=== PATIENT | male | born 1940 | race Caucasian/White ===

== ENCOUNTER 2017-03-28 12:50 | Outpatient (RCR) | payer MEDICARE, BC ==
[~2017-03-28 12:50] MED LIST: ASPI81TA85 PO; DIOV80TA3 PO; GABA-283 PO; LEVO25TA5 PO; LIPI10TA PO; PRAM0.252 PO; TRIC145T PO; TYLE325T5 PO; ULTR37.52 PO
== END 2017-03-30 ==
LOC: M CR 12:50
PROVIDERS: ATTEND Internal Medicine Cardiovascular Disease
DX: Z51.89 Encounter for other specified aftercare (principal); I25.10 Atherosclerotic heart disease of native coronary artery without angina pectoris

== ENCOUNTER 2017-04-14 08:57 | Outpatient (RCR) | payer MEDICARE, BC | END 2017-04-30 | LOC: M CR 08:57 | PROVIDERS: ATTEND Internal Medicine Cardiovascular Disease | DX: Z51.89 Encounter for other specified aftercare (principal); I25.10 Atherosclerotic heart disease of native coronary artery without angina pectoris ==

== ENCOUNTER 2017-04-18 14:27 | Emergency (ER) | payer MEDICARE, BC ==
[~2017-04-18] VITALS: Ht 177.8 cm; Wt 88.0 kg
--- NOTE | 2017-04-18 15:56 | REP ---
Clinical: Dizziness. Comparison: None. Findings: Age-related atrophy and microvascular ischemic changes are appreciated. The ventricles and sulci are symmetric. Tejeda-white differentiation is maintained. There is no evidence for acute intracranial hemorrhage, mass/mass effect, pathology or infarction. No extra-axial fluid collection. Calvarium is intact. Paranasal sinuses and mastoid air cells are clear. Impression: Age related atrophy and microvascular ischemic changes. No acute intracranial hemorrhage, infarction, or mass/mass effect. Signed by Willem Carranza MD 04/18/2017 03:48 P
--- NOTE | 2017-04-18 16:07 | REP ---
Clinical: Chest pain. Comparison: None. Findings: Evidence of prior sternotomy, CABG, and pacemaker placement. No evidence for cardiomegaly. Chronic-appearing bibasilar changes are suggested although mild superimposed acute atelectasis cannot be excluded. No effusion. No pneumothorax. Skeletal structures demonstrate age-related changes. Impression: No prior exams for comparison. Chronic-appearing changes suggested and mild superimposed basilar atelectasis cannot be excluded. Signed by Willem Carranza MD 04/18/2017 03:58 P
[2017-04-18 16:24] LABS: BASO % 0.4 % (0.0-1.0); EOS # 0.2 K/mm3 (0.0-0.50); EOS % 2.6 % (0.0-3.0); LARGE UNSTAINED CELL # 0.2 K/mm3 (0.0-0.4); LARGE UNSTAINED CELL % 2.2 % (0.0-4.0); LYMPH % 25.1 % (24.0-44.0); MEAN CORPUSCULAR HEMOGLOBIN 32.5 pg (27.0-33.0); MEAN CORPUSCULAR VOLUME 98.4 fl (80.0-96.0); MONO # 0.7 K/mm3 (0.0-0.8); MONO % 9.4 % (0.0-5.0); NEUTROPHILS # 4.4 K/mm3 (1.8-7.7); NEUTROPHILS % 60.3 % (36.0-66.0); PLATELET COUNT, AUTOMATED 163 k/mm3 (150-450); RED CELL DISTRIBUTION WIDTH 13.4 % (11.5-14.5); WHITE BLOOD COUNT 7.3 K/mm3 (4.0-10.0)
[2017-04-18 16:46] LABS: ALBUMIN 3.7 GM/DL (3.2-5.2); ALBUMIN/GLOBULIN RATIO 1.06 (1.00-1.93); ALKALINE PHOSPHATASE 82 U/L (45-117); ALT/SGPT 23 U/L (12-78); ANION GAP 9 MEQ/L (8-16); AST/SGOT 18 U/L (15-37); BILIRUBIN,DIRECT 0.1 MG/DL (0.0-0.2); BILIRUBIN,TOTAL 0.5 MG/DL (0.2-1.0); BLOOD UREA NITROGEN 53 MG/DL (7-18); CALCIUM LEVEL 8.7 MG/DL (8.8-10.2); CARBON DIOXIDE LEVEL 22 MEQ/L (21-32); CHLORIDE LEVEL 107 MEQ/L (98-107); CREATININE FOR GFR 1.83 MG/DL (0.70-1.30); FREE T4 1.38 NG/DL (0.76-1.46); GLOMERULAR FILTRATION RATE 38.6 (>42); GLUCOSE, FASTING 78 MG/DL (83-110); POTASSIUM SERUM 4.6 MEQ/L (3.5-5.1); SODIUM LEVEL 138 MEQ/L (136-145); TOTAL PROTEIN 7.2 GM/DL (6.4-8.2)
[2017-04-18 17:44] VITALS: BP 115/63
--- NOTE | 2017-04-18 19:29 | ECGEPIP ---
Stationary ECG Study [facility] [place] - ED Test Date: 2017-04-18 Pat Name: CHASE STEINER Department: Room: - Gender: M [employer]: JMary : 1940 Requested By: Bishop Stewart Order Number: [id number] Reading MD: Amando Marquez Measurements Intervals Rogers Rate: 61 P: 125 TX: 194 QRS: 41 QRSD: 101 T: 28 QT: 405 QTc: 408 Interpretive Statements ELECTRONIC ATRIAL PACEMAKER ABNORMAL RHYTHM ECG Electronically Signed On 04-18-2017 19:29:21 EDT by Amando Marquez
== END 2017-04-18 17:52 | disposition home or self-care (01) ==
LOC: M ED 17:25
DX: S09.90XA Unspecified injury of head, initial encounter (principal); W01.0XXA Fall on same level from slipping, tripping and stumbling without subsequent striking against object, initial encounter; Y92.89 Other specified places as the place of occurrence of the external cause; Y93.01 Activity, walking, marching and hiking; Y99.9 Unspecified external cause status; R42 Dizziness and giddiness; I25.2 Old myocardial infarction; I10 Essential (primary) hypertension; E78.00 Pure hypercholesterolemia, unspecified; G47.30 Sleep apnea, unspecified; F32.9 Major depressive disorder, single episode, unspecified; F17.200 Nicotine dependence, unspecified, uncomplicated; K51.90 Ulcerative colitis, unspecified, without complications; Z79.82 Long term (current) use of aspirin; Z79.899 Other long term (current) drug therapy

== ENCOUNTER → 2017-05-30 | Outpatient (RCR) | payer MEDICARE, BC ==
[~2017-05-30] MED LIST changes: -TRIC145T PO; +TRIC145T22 PO; -ULTR37.52 PO; +ULTR37.54 PO
== END ==
LOC: M CR 05-01 08:53
PROVIDERS: ATTEND Internal Medicine Cardiovascular Disease
DX: Z51.89 Encounter for other specified aftercare (principal); I25.10 Atherosclerotic heart disease of native coronary artery without angina pectoris

== ENCOUNTER 2017-06-13 10:10 | Outpatient (RCR) | payer MEDICARE, BC | END 2017-06-30 | LOC: M CR 10:10 | PROVIDERS: ATTEND Internal Medicine Cardiovascular Disease | DX: Z51.89 Encounter for other specified aftercare (principal); I25.10 Atherosclerotic heart disease of native coronary artery without angina pectoris ==

== ENCOUNTER → 2018-03-25 | Outpatient (CLI) | payer MEDICARE, BC ==
[2018-03-25 13:28] LABS: BASO % 0.3 % (0.0-1.0); EOS % 0.7 % (0.0-3.0); HEMATOCRIT 38.8 % (42.0-52.0); LYMPH # 1.9 10^3/uL (1.5-4.5); LYMPH % 32.7 % (24.0-44.0); MEAN CORPUSCULAR HEMOGLOBIN 33.9 pg (27.0-33.0); MEAN CORPUSCULAR HGB CONC 33.5 g/dl (32.0-36.5); MONO # 0.8 10^3/uL (0.0-0.8); MONO % 13.3 % (0.0-5.0); PLATELET COUNT, AUTOMATED 174 10^3/uL (150-450); RED BLOOD COUNT 3.84 10^6/uL (4.30-6.10); RED CELL DISTRIBUTION WIDTH 13.6 % (11.5-14.5); WHITE BLOOD COUNT 5.8 10^3/uL (4.0-10.0)
[2018-03-25 14:09] LABS: ALBUMIN 3.2 GM/DL (3.2-5.2); ALBUMIN/GLOBULIN RATIO 0.91 (1.00-1.93); ALKALINE PHOSPHATASE 70 U/L (45-117); ALT/SGPT 42 U/L (12-78); AST/SGOT 25 U/L (7-37); BILIRUBIN,DIRECT 0.1 MG/DL (0.0-0.2); BILIRUBIN,TOTAL 0.5 MG/DL (0.2-1.0); FERRITIN 130 NG/ML (26-388); IRON (FE) 99 UG/DL (65-175); PERCENT SATURATION 39.6 % (19.7-50.0); TOTAL IRON BINDING CAPACITY 250 UG/DL (250-450); TOTAL PROTEIN 6.7 GM/DL (6.4-8.2)
== END ==
LOC: M LAB 12:23
DX: R19.7 Diarrhea, unspecified (principal)
CPT/HCPCS: 83550

== ENCOUNTER → 2018-03-26 | Outpatient (REF) | payer MEDICARE, BC | LOC: M LAB REF 11:11 | DX: R19.7 Diarrhea, unspecified (principal) | CPT/HCPCS: 87177 ==

== ENCOUNTER → 2018-03-31 | Outpatient (REF) | payer MEDICARE, BC ==
[2018-03-31 10:27] LABS: CREATININE FOR GFR 1.71 MG/DL (0.70-1.30); GLOMERULAR FILTRATION RATE 41.6 (>42)
[2018-03-31 10:27] LABS: BLOOD UREA NITROGEN 33 MG/DL (7-18)
[2018-03-31 10:38] LABS: FOLATE > 24.0 NG/ML; VITAMIN B12 LEVEL 647 PG/ML
[2018-03-31 10:53] LABS: ESTIMATED AVERAGE GLUCOSE 131 MG/DL (60-110); HEMOGLOBIN A1c 6.2 %
[2018-04-03 14:13] LABS: CERULOPLASMIN 35.8 mg/dL (16.0-31.0); COPPER PLASMA 149 ug/dL (72-166); VITAMIN B1 LEVEL WHOLE BLOOD 228.4 nmol/L (66.5-200.0); VITAMIN B6,PYRIDOXAL PHOSPHATE 23.6 ug/L (5.3-46.7); VITAMIN E(GAMMA TOCOPHEROL) 1.1 mg/L (0.5-4.9)
== END ==
LOC: M LAB REF 09:12
DX: G62.9 Polyneuropathy, unspecified (principal); E11.9 Type 2 diabetes mellitus without complications; E53.8 Deficiency of other specified B group vitamins; T56.4X2S Toxic effect of copper and its compounds, intentional self-harm, sequela
CPT/HCPCS: 82525

== ENCOUNTER 2018-04-01 09:25 | Emergency (ER) | payer MEDICARE, BC ==
[2018-04-01] MEDS: NS 1,000 ML IV (10:35)
[2018-04-01 10:50] LABS: BASO % 0.5 % (0.0-1.0); EOS # 0.1 10^3/uL (0.0-0.50); EOS % 0.8 % (0.0-3.0); HEMATOCRIT 38.7 % (42.0-52.0); HEMOGLOBIN 12.6 g/dl (13.5-17.5); IMMATURE GRANULOCYTE % 0.6 % (0-3.0); LYMPH # 1.6 10^3/uL (1.5-4.5); MEAN CORPUSCULAR HEMOGLOBIN 33.5 pg (27.0-33.0); MEAN CORPUSCULAR HGB CONC 32.6 g/dl (32.0-36.5); MEAN CORPUSCULAR VOLUME 102.9 fl (80.0-96.0); MONO # 0.7 10^3/uL (0.0-0.8); MONO % 11.1 % (0.0-5.0); PLATELET COUNT, AUTOMATED 222 10^3/uL (150-450); RED BLOOD COUNT 3.76 10^6/uL (4.30-6.10); RED CELL DISTRIBUTION WIDTH 14.1 % (11.5-14.5); WHITE BLOOD COUNT 6.5 10^3/uL (4.0-10.0)
[2018-04-01 10:53] LABS: AMORPHOUS SEDIMENT RFX SMALL (NEGATIVE); KETONE, URINE AUTO RFX NEGATIVE (NEGATIVE); LEUKOCYTE ESTERASE UR AUTO RFX NEGATIVE (NEGATIVE); MUCUS, URINE RFX SMALL (NEGATIVE); NITRITE, URINE AUTO RFX NEGATIVE (NEGATIVE); RBC, URINE AUTO RFX 15 /HPF (0-3); SPECIFIC GRAVITY UR AUTO RFX 1.028 (1.002-1.035); SQUAM EPITHELIAL CELL UR AURFX 1 /HPF (0-6); WBC, URINE AUTO RFX 7 /HPF (0-3)
[2018-04-01 11:17] LABS: ALBUMIN 3.4 GM/DL (3.2-5.2); ALBUMIN/GLOBULIN RATIO 0.81 (1.00-1.93); ALKALINE PHOSPHATASE 79 U/L (45-117); ALT/SGPT 51 U/L (12-78); ANION GAP 7 MEQ/L (8-16); AST/SGOT 30 U/L (7-37); BILIRUBIN,DIRECT < 0.1 MG/DL (0.0-0.2); BILIRUBIN,TOTAL 0.4 MG/DL (0.2-1.0); BLOOD UREA NITROGEN 33 MG/DL (7-18); CALCIUM LEVEL 9.4 MG/DL (8.8-10.2); CARBON DIOXIDE LEVEL 27 MEQ/L (21-32); CHLORIDE LEVEL 107 MEQ/L (98-107); CREATININE FOR GFR 1.61 MG/DL (0.70-1.30); GLOMERULAR FILTRATION RATE 44.6 (>42); GLUCOSE, FASTING 100 MG/DL (70-100); LIPASE 173 U/L (73-393); POTASSIUM SERUM 3.9 MEQ/L (3.5-5.1); SODIUM LEVEL 141 MEQ/L (136-145); TOTAL PROTEIN 7.6 GM/DL (6.4-8.2)
== END 2018-04-01 12:51 | disposition home or self-care (01) ==
LOC: M ED 09:25
DX: E86.0 Dehydration (principal); I10 Essential (primary) hypertension; I25.2 Old myocardial infarction; E78.5 Hyperlipidemia, unspecified; G47.33 Obstructive sleep apnea (adult) (pediatric); F33.9 Major depressive disorder, recurrent, unspecified; Z79.899 Other long term (current) drug therapy; Z95.0 Presence of cardiac pacemaker; Z98.890 Other specified postprocedural states; Z87.891 Personal history of nicotine dependence
CPT/HCPCS: 83690

== ENCOUNTER 2018-04-17 07:20 | Day surgery (SDC) | payer MEDICARE, BC ==
[2018-04-17] MEDS: NS 1,000 ML IV (07:30)
[2018-04-17] MEDS ORDERED: PROPOFOL 200 MG/20 ML VIAL As Ordered (08:25)
== END 2018-04-17 10:16 | disposition home or self-care (01) ==
LOC: M OPP 07:20
DX: R19.7 Diarrhea, unspecified (principal); K91.850 Pouchitis; K62.4 Stenosis of anus and rectum; K62.89 Other specified diseases of anus and rectum; K63.3 Ulcer of intestine; I48.91 Unspecified atrial fibrillation; I25.10 Atherosclerotic heart disease of native coronary artery without angina pectoris; I25.2 Old myocardial infarction; I12.9 Hypertensive chronic kidney disease with stage 1 through stage 4 chronic kidney disease, or unspecified chronic kidney disease; Z95.0 Presence of cardiac pacemaker; Z95.1 Presence of aortocoronary bypass graft; E03.9 Hypothyroidism, unspecified; K51.90 Ulcerative colitis, unspecified, without complications; K57.32 Diverticulitis of large intestine without perforation or abscess without bleeding; Z90.49 Acquired absence of other specified parts of digestive tract; Z87.19 Personal history of other diseases of the digestive system; R42 Dizziness and giddiness; R06.02 Shortness of breath; M19.90 Unspecified osteoarthritis, unspecified site; F32.9 Major depressive disorder, single episode, unspecified; G47.30 Sleep apnea, unspecified; R06.83 Snoring; N18.9 Chronic kidney disease, unspecified; Z87.891 Personal history of nicotine dependence; Z79.82 Long term (current) use of aspirin; Z79.899 Other long term (current) drug therapy
CPT/HCPCS: 45380

== ENCOUNTER → 2018-04-20 | Outpatient (REF) | payer MEDICARE, BC ==
[2018-04-20 17:33] LABS: CREATININE FOR GFR 1.75 MG/DL (0.70-1.30); GLOMERULAR FILTRATION RATE 40.5 (>42)
[2018-04-20 17:33] LABS: BLOOD UREA NITROGEN 22 MG/DL (7-18)
== END ==
LOC: M LABNEURO 12:48
DX: N18.9 Chronic kidney disease, unspecified (principal)
CPT/HCPCS: 82565

== ENCOUNTER → 2018-04-24 | Outpatient (CLI) | payer MEDICARE, BC | LOC: M RAD 16:57 | DX: R42 Dizziness and giddiness (principal); R55 Syncope and collapse; R47.81 Slurred speech | CPT/HCPCS: 93880 ==

== ENCOUNTER → 2019-05-20 | Outpatient (REF) | payer MEDICARE, BC ==
[~2019-05-20] MED LIST changes: +AMIO200T PO; +ASPI-255 PO; +FISH100049 PO; -GABA-283 PO; +GABA-845 PO; +IMOD2TAB16 PO; +LOMO2.5T PO; +METO25TA4 PO; -PRAM0.252 PO; +PRAM0.255 PO; +PRAV40TA2 PO
== END ==
LOC: M SFHCPLAZ 12:44
PROVIDERS: ATTEND Family Medicine
DX: G47.10 Hypersomnia, unspecified (principal); R53.82 Chronic fatigue, unspecified; Z53.8 Procedure and treatment not carried out for other reasons

== ENCOUNTER → 2020-04-11 | Outpatient (REF) | payer MEDICARE, BC ==
[2020-04-11 16:03] LABS: BASO % 0.6 % (0.0-1.0); EOS # 0.1 10^3/uL (0.0-0.5); EOS % 1.1 % (0.0-3.0); HEMATOCRIT 49.9 % (42.0-52.0); HEMOGLOBIN 16.3 g/dl (13.5-17.5); LYMPH # 1.5 10^3/uL (1.5-5.0); LYMPH % 21.3 % (24.0-44.0); MEAN CORPUSCULAR HEMOGLOBIN 33.2 pg (27.0-33.0); MEAN CORPUSCULAR HGB CONC 32.7 g/dl (32.0-36.5); MEAN CORPUSCULAR VOLUME 101.6 fl (80.0-96.0); MONO # 0.8 10^3/uL (0.0-0.8); MONO % 10.6 % (0.0-5.0); NEUTROPHILS # 4.7 10^3/uL (1.5-8.5); NEUTROPHILS % 66.1 % (36.0-66.0); PLATELET COUNT, AUTOMATED 200 10^3/uL (150-450); RED BLOOD COUNT 4.91 10^6/uL (4.30-6.10); WHITE BLOOD COUNT 7.1 10^3/uL (4.0-10.0)
[2020-04-11 16:21] LABS: ALBUMIN 3.6 GM/DL (3.2-5.2); ALT/SGPT 27 U/L (12-78); BILIRUBIN,TOTAL 0.5 MG/DL (0.2-1.0); BLOOD UREA NITROGEN 30 MG/DL (7-18); CALCIUM LEVEL 9.9 MG/DL (8.8-10.2); CARBON DIOXIDE LEVEL 26 MEQ/L (21-32); CHLORIDE LEVEL 108 MEQ/L (98-107); CHOLESTEROL LEVEL 227 MG/DL (<200); CHOLESTEROL RISK RATIO 7.566 (<5); CREATININE FOR GFR 1.42 MG/DL (0.70-1.30); FOLATE > 24.0 NG/ML; FREE T4 1.47 NG/DL (0.76-1.46); GLOMERULAR FILTRATION RATE 51.3 (>42); GLUCOSE, FASTING 95 MG/DL (70-100); HDL CHOLESTEROL 30 MG/DL (>40); LDL CHOLESTEROL 126 MG/DL (<100); NON-HDL-C 197 MG/DL; POTASSIUM SERUM 4.5 MEQ/L (3.5-5.1); SODIUM LEVEL 142 MEQ/L (136-145); THYROID STIMULATING HORMONE 0.419 uIU/ML (0.358-3.740); TOTAL PROTEIN 7.1 GM/DL (6.4-8.2); TRIGLYCERIDES LEVEL 353 MG/DL (<150); URIC ACID 7.4 MG/DL (3.5-7.2); VITAMIN B12 LEVEL 679 PG/ML
[2020-04-11 16:29] LABS: HEMOGLOBIN A1c 5.9 %
== END ==
LOC: M SFHCPLAZ 11:59
PROVIDERS: ATTEND Physician Assistant
DX: G62.9 Polyneuropathy, unspecified (principal); E03.9 Hypothyroidism, unspecified; I10 Essential (primary) hypertension; G47.33 Obstructive sleep apnea (adult) (pediatric); M1A.9XX0 Chronic gout, unspecified, without tophus (tophi); Z79.899 Other long term (current) drug therapy
CPT/HCPCS: 36415; 80053; 80061; 82607; 82746; 83036; 84439; 84443; 84550; 85025; G0463

== ENCOUNTER → 2020-06-23 | Outpatient (CLI) | payer MEDICARE, BC ==
[~2020-06-23] MED LIST changes: -AMIO200T PO; +AMIO200T3 PO; -ASPI81TA85 PO; +ASPI81TA86 PO
--- NOTE | 2020-08-14 07:10 | SLEEPCENT ---
DATE: 06/23/2020 ORDERED BY: TRINI Bansal Nocturnal polysomnography was performed for evaluation of sleep physiology in light of concern for the obstructive sleep apnea syndrome in this patient who had previously been diagnosed with this condition and has comorbidities of hypothyroidism, obesity, and hypertension, as well as coronary artery disease. Seven hours and 53 minutes of data were reviewed. There were 198.5 minutes of sleep identified. Sleep latency was prolonged at 160 minutes. REM latency was prolonged at 185 minutes. Sleep architecture showed poor progression with periods of wake and overall sleep efficiency was diminished at 42.9%. The electrocardiogram showed a sinus rhythm with an average heart rate of 62 beats per minute. The EEG showed reasonably normal waveforms for wake and sleep. There were only eight respiratory events identified of ten seconds in duration or greater for an apnea hypopnea index of 2.4. Significant snoring was, however, appreciated. Respiratory related arousals, when arousals from snoring were included, occurred 6.3 times per hour. There were no oxygen desaturations below 90%. Some limb activity was noted, but limb movement arousal index was only 4.2. IMPRESSIONS: Normal nocturnal polysomnography with snoring. [facility]
== END ==
LOC: M SLEEP 20:00
PROVIDERS: ATTEND Nurse Practitioner Family
DX: R06.83 Snoring (principal)

== ENCOUNTER → 2020-09-27 | Outpatient (REF) | payer MEDICARE, BC ==
[2020-09-27 14:25] LABS: BLOOD UREA NITROGEN 19 MG/DL (7-18); CREATININE FOR GFR 1.56 MG/DL (0.70-1.30); GLOMERULAR FILTRATION RATE 45.9 (>42); GLUCOSE, FASTING 98 MG/DL (70-100); SODIUM LEVEL 145 MEQ/L (136-145)
[2020-09-27 14:26] LABS: ALBUMIN 3.5 GM/DL (3.2-5.2); ALT/SGPT 20 U/L (12-78); BILIRUBIN,TOTAL 0.4 MG/DL (0.2-1.0); CALCIUM LEVEL 9.6 MG/DL (8.8-10.2); CARBON DIOXIDE LEVEL 27 MEQ/L (21-32); CHLORIDE LEVEL 112 MEQ/L (98-107); CHOLESTEROL LEVEL 162 MG/DL (<200); CHOLESTEROL RISK RATIO 4.153 (<5); HDL CHOLESTEROL 39 MG/DL (>40); LDL CHOLESTEROL 86 MG/DL (<100); NON-HDL-C 123 MG/DL; POTASSIUM SERUM 4.5 MEQ/L (3.5-5.1); THYROID STIMULATING HORMONE < 0.005 uIU/ML (0.358-3.740); TOTAL PROTEIN 6.9 GM/DL (6.4-8.2); TRIGLYCERIDES LEVEL 184 MG/DL (<150); URIC ACID 9.7 MG/DL (3.5-7.2)
== END ==
LOC: M SFHCPLAZ 11:02
PROVIDERS: ATTEND Physician Assistant
DX: E78.5 Hyperlipidemia, unspecified (principal); I10 Essential (primary) hypertension; E03.9 Hypothyroidism, unspecified; M1A.9XX0 Chronic gout, unspecified, without tophus (tophi)

== ENCOUNTER → 2020-10-20 | Outpatient (CLI) | payer MEDICARE, BC ==
[2020-10-20 16:15] LABS: ALBUMIN 3.4 GM/DL (3.2-5.2); BILIRUBIN,DIRECT 0.2 MG/DL (0.0-0.2); BILIRUBIN,TOTAL 0.5 MG/DL (0.2-1.0); FREE T4 1.46 NG/DL (0.76-1.46); THYROID STIMULATING HORMONE 0.012 uIU/ML (0.358-3.740); TOTAL PROTEIN 6.8 GM/DL (6.4-8.2)
== END ==
LOC: M PLALAB 13:28
PROVIDERS: ATTEND Internal Medicine Cardiovascular Disease
DX: E78.2 Mixed hyperlipidemia (principal); I25.10 Atherosclerotic heart disease of native coronary artery without angina pectoris

== ENCOUNTER → 2021-05-24 | Outpatient (REF) | payer MEDICARE, BC ==
[~2021-05-24] MED LIST changes: +GABA-283 PO; -GABA-845 PO
[2021-05-24 13:54] LABS: HEMATOCRIT 46.4 % (42.0-52.0); HEMOGLOBIN 15.4 g/dl (13.5-17.5); MEAN CORPUSCULAR HEMOGLOBIN 33.8 pg (27.0-33.0); MEAN CORPUSCULAR HGB CONC 33.2 g/dl (32.0-36.5); MEAN CORPUSCULAR VOLUME 101.8 fl (80.0-96.0); PLATELET COUNT, AUTOMATED 170 10^3/uL (150-450); RED BLOOD COUNT 4.56 10^6/uL (4.30-6.10); WHITE BLOOD COUNT 6.7 10^3/uL (4.0-10.0)
[2021-05-24 14:41] LABS: ALBUMIN 3.7 GM/DL (3.2-5.2); BILIRUBIN,TOTAL 0.4 MG/DL (0.2-1.0); CALCIUM LEVEL 9.5 MG/DL (8.8-10.2); CREATININE FOR GFR 1.39 MG/DL (0.70-1.30); FREE T4 0.95 NG/DL (0.76-1.46); GLOMERULAR FILTRATION RATE 52.5 (>42); POTASSIUM SERUM 4.5 MEQ/L (3.5-5.1); THYROID STIMULATING HORMONE 0.577 uIU/ML (0.358-3.740); TOTAL PROTEIN 7.1 GM/DL (6.4-8.2); URIC ACID 8.9 MG/DL (3.5-7.2)
[2021-05-25 17:07] LABS: FREE KAPPA LIGHT CHAINS SERUM 51.9 mg/L (3.3-19.4); FREE LAMBDA LIGHT CHAINS SERUM 33.2 mg/L (5.7-26.3); KAPPA/LAMBDA RATIO SERUM 1.56 (0.26-1.65)
== END ==
LOC: M SFHCPLAZ 11:26
PROVIDERS: ATTEND Physician Assistant
DX: M1A.9XX0 Chronic gout, unspecified, without tophus (tophi) (principal); I10 Essential (primary) hypertension; M54.5 Low back pain; E03.9 Hypothyroidism, unspecified
CPT/HCPCS: 36415; 80053; 83883; 84439; 84443; 84550; 85027; G0463

== ENCOUNTER 2022-04-17 16:30 | Observation (INO) | payer MEDICARE, BC ==
[~2022-04-17] VITALS: Ht 177.8 cm; Wt 79.5 kg
[~2022-04-17 16:30] MED LIST changes: -AMIO200T3 PO; +AMIO200T49 PO; +ULTR1TAB PO; -ULTR37.54 PO
[2022-04-17 18:17] LABS: BASO % 0.3 % (0.0-1.0); EOS # 0.2 10^3/uL (0.0-0.5); EOS % 3.4 % (0.0-3.0); HEMATOCRIT 47.3 % (42.0-52.0); HEMOGLOBIN 15.8 g/dl (13.5-17.5); LYMPH # 2.1 10^3/uL (1.5-5.0); LYMPH % 33.4 % (24.0-44.0); MEAN CORPUSCULAR HEMOGLOBIN 34.6 pg (27.0-33.0); MEAN CORPUSCULAR HGB CONC 33.4 g/dl (32.0-36.5); MEAN CORPUSCULAR VOLUME 103.7 fl (80.0-96.0); MONO # 0.8 10^3/uL (0.0-0.8); MONO % 13.2 % (2.0-8.0); NEUTROPHILS # 3.1 10^3/uL (1.5-8.5); NEUTROPHILS % 49.5 % (36.0-66.0); PLATELET COUNT, AUTOMATED 148 10^3/uL (150-450); RED BLOOD COUNT 4.56 10^6/uL (4.30-6.10); WHITE BLOOD COUNT 6.2 10^3/uL (4.0-10.0)
[2022-04-17 18:40] LABS: CK-MB VALUE MASS 1.2 NG/ML (<3.6); MB/CK RELATIVE INDEX 2.5 (< OR =4)
[2022-04-17 18:45] LABS: CALCIUM LEVEL 9.9 MG/DL (8.8-10.2); CREATININE FOR GFR 1.76 MG/DL (0.70-1.30); FREE T4 1.12 NG/DL (0.76-1.46); GLOMERULAR FILTRATION RATE 39.9 (>35); POTASSIUM SERUM 4.5 MEQ/L (3.5-5.1); THYROID STIMULATING HORMONE 0.402 uIU/ML (0.358-3.740)
[2022-04-17] MEDS ORDERED: NS 500 ML IV ONE (22:00)
[2022-04-17] MEDS: NS 1,000 ML IV SCH (22:00)
[2022-04-17] MEDS ORDERED: FISH1000 PO (22:55)
[2022-04-17] MEDS ORDERED: SYNT100T PO (22:55)
[2022-04-17] MEDS ORDERED: LOPE2TAB12 PO (22:55)
[2022-04-17] MEDS ORDERED: AMIO0.1T PO (22:55)
[2022-04-17] MEDS ORDERED: CHOL4PW PO (22:55)
[2022-04-17] MEDS ORDERED: GABA800T4 PO (22:55)
[2022-04-17] MEDS ORDERED: DULO-34 PO (22:56)
[2022-04-17] MEDS ORDERED: VITMTA PO (22:56)
[2022-04-17] MEDS ORDERED: MIRT-62 PO (22:56)
[2022-04-17] MEDS ORDERED: DICY1CAP8 PO (22:56)
[2022-04-17] MEDS ORDERED: HOME MED LIST COMPLETE! XX SCH (23:00)
[2022-04-18] MEDS: MIRTAZAPINE 15 MG TAB PO SCH ×2 (00:58→19:59)
[2022-04-18] MEDS: LEVOTHYROXINE 100MCG TABLET (0.1MG) PO SCH (05:59)
[2022-04-18] MEDS: HEPARIN SOD (PORCINE) 5000UNITS/ML 1ML VIAL/SYRINGE SQ SCH ×2 (06:00→18:27)
[2022-04-18 06:20] VITALS: BP 133/87
[2022-04-18] MEDS: AMIODARONE 100MG TABLET (PACERONE) PO SCH (09:26)
[2022-04-18] MEDS: MULTIVITAMINS/MINERALS THERAP 1 TAB PO SCH (09:26)
[2022-04-18] MEDS: DICYCLOMINE 10 MG CAP PO SCH ×3 (09:27→19:59)
[2022-04-18] MEDS: ASPIRIN ENTERIC 325 MG TAB PO SCH (09:27)
[2022-04-18] MEDS: METOPROLOL TART 25 MG TABLET PO SCH ×2 (09:27→19:59)
[2022-04-18] MEDS: GABAPENTIN 400MG CAP PO SCH ×2 (09:27→19:58)
[2022-04-18 10:17] LABS: BASO % 0.4 % (0.0-1.0); EOS # 0.2 10^3/uL (0.0-0.5); EOS % 3.9 % (0.0-3.0); HEMOGLOBIN 14.5 g/dl (13.5-17.5); LYMPH # 1.4 10^3/uL (1.5-5.0); LYMPH % 27.9 % (24.0-44.0); MONO # 0.3 10^3/uL (0.0-0.8); MONO % 5.9 % (2.0-8.0); NEUTROPHILS % 61.9 % (36.0-66.0); PLATELET COUNT, AUTOMATED 123 10^3/uL (150-450); RED BLOOD COUNT 4.27 10^6/uL (4.30-6.10); WHITE BLOOD COUNT 4.9 10^3/uL (4.0-10.0)
[2022-04-18] MEDS: CHOLESTYRAMINE 4 GM PWD PKT PO SCH ×2 (10:35→19:58)
[2022-04-18 10:42] LABS: CALCIUM LEVEL 9.3 MG/DL (8.8-10.2); CREATININE FOR GFR 1.58 MG/DL (0.70-1.30); GLOMERULAR FILTRATION RATE 45.1 (>35); MAGNESIUM LEVEL 1.8 MG/DL (1.8-2.4); POTASSIUM SERUM 3.9 MEQ/L (3.5-5.1)
[2022-04-18 11:00] VITALS: BP_SYST 113; BP_SYST 121; BP_SYST 122; BP_DIAS 73; BP_DIAS 76; BP_DIAS 88
[2022-04-18 16:00] VITALS: BP 127/54
[2022-04-18 16:40] LABS: ABG BASE EXCESS -4.4 (-2.0-2.0); ABG O2 SATURATION 95.7 % (95.0-99.0); ABG PARTIAL PRESSURE CO2 35.1 mmHg (35.0-45.0); ABG PARTIAL PRESSURE O2 79.7 mmHg (75.0-100.0); ABG STANDARD HCO3 20.8 MEQ/L (22.0-26.0); ABG TOTAL CO2 21.1 MEQ/L (23.0-31.0); ABG pH (ARTERIAL) 7.374 UNITS (7.350-7.450)
[2022-04-18 19:57] VITALS: BP 141/80
[2022-04-19] MEDS: NS 1,000 ML IV SCH (01:53)
[2022-04-19] MEDS: LEVOTHYROXINE 100MCG TABLET (0.1MG) PO SCH (05:35)
[2022-04-19] MEDS: HEPARIN SOD (PORCINE) 5000UNITS/ML 1ML VIAL/SYRINGE SQ SCH (05:36)
[2022-04-19 05:42] VITALS: BP 142/79
[2022-04-19 07:53] LABS: BASO % 0.4 % (0.0-1.0); EOS # 0.2 10^3/uL (0.0-0.5); EOS % 3.3 % (0.0-3.0); HEMATOCRIT 42.4 % (42.0-52.0); HEMOGLOBIN 13.9 g/dl (13.5-17.5); LYMPH # 1.5 10^3/uL (1.5-5.0); LYMPH % 33.8 % (24.0-44.0); MEAN CORPUSCULAR HEMOGLOBIN 33.7 pg (27.0-33.0); MEAN CORPUSCULAR HGB CONC 32.8 g/dl (32.0-36.5); MEAN CORPUSCULAR VOLUME 102.7 fl (80.0-96.0); MONO # 0.5 10^3/uL (0.0-0.8); MONO % 10.1 % (2.0-8.0); NEUTROPHILS # 2.4 10^3/uL (1.5-8.5); NEUTROPHILS % 52.2 % (36.0-66.0); PLATELET COUNT, AUTOMATED 105 10^3/uL (150-450); RED BLOOD COUNT 4.13 10^6/uL (4.30-6.10); WHITE BLOOD COUNT 4.6 10^3/uL (4.0-10.0)
[2022-04-19 08:24] LABS: CALCIUM LEVEL 9.2 MG/DL (8.8-10.2); CREATININE FOR GFR 1.32 MG/DL (0.70-1.30); GLOMERULAR FILTRATION RATE 55.6 (>35); MAGNESIUM LEVEL 1.8 MG/DL (1.8-2.4); POTASSIUM SERUM 4.1 MEQ/L (3.5-5.1)
[2022-04-19] MEDS: MULTIVITAMINS/MINERALS THERAP 1 TAB PO SCH (10:15)
[2022-04-19] MEDS: ASPIRIN ENTERIC 325 MG TAB PO SCH (10:15)
[2022-04-19] MEDS: AMIODARONE 100MG TABLET (PACERONE) PO SCH (10:15)
[2022-04-19] MEDS: DICYCLOMINE 10 MG CAP PO SCH ×2 (10:15→15:36)
[2022-04-19] MEDS: GABAPENTIN 400MG CAP PO SCH (10:15)
[2022-04-19 10:16] VITALS: BP 131/77
[2022-04-19] MEDS: METOPROLOL TART 25 MG TABLET PO SCH (10:16)
[2022-04-19] MEDS: CHOLESTYRAMINE 4 GM PWD PKT PO SCH (12:24)
[2022-04-19 14:00] VITALS: BP 128/82
[2022-04-19] MEDS ORDERED: ASPI-424 PO (15:04)
[2022-04-19] MEDS ORDERED: ELIQ5TAB PO (15:04)
[2022-04-19] MEDS ORDERED: APIXABAN 5 MG TAB (ELIQUIS) PO ONE (15:30)
[2022-04-20] MEDS ORDERED: ASPIRIN 81MG ENTERIC TABLET PO SCH (09:00)
== END 2022-04-19 16:04 | disposition home health service (06) ==
LOC: M ED 16:30 → M ED INP 20:35 → M MSPAV 23:45
PROVIDERS: ADMIT Internal Medicine; ATTEND Internal Medicine
DX: R29.6 Repeated falls (principal); E86.0 Dehydration; N17.9 Acute kidney failure, unspecified; K51.918 Ulcerative colitis, unspecified with other complication; K52.9 Noninfective gastroenteritis and colitis, unspecified; R09.02 Hypoxemia; I48.0 Paroxysmal atrial fibrillation; E03.9 Hypothyroidism, unspecified; F32.A Depression, unspecified; I25.10 Atherosclerotic heart disease of native coronary artery without angina pectoris; Z98.61 Coronary angioplasty status; Z95.0 Presence of cardiac pacemaker; R91.8 Other nonspecific abnormal finding of lung field; R79.1 Abnormal coagulation profile; N26.1 Atrophy of kidney (terminal); I51.89 Other ill-defined heart diseases; J30.2 Other seasonal allergic rhinitis; Z90.49 Acquired absence of other specified parts of digestive tract; Z87.891 Personal history of nicotine dependence; Z79.899 Other long term (current) drug therapy; Z79.01 Long term (current) use of anticoagulants; Z79.82 Long term (current) use of aspirin; Z79.890 Hormone replacement therapy
CPT/HCPCS: 36415; 70450; 71045; 71250; 72125; 78582; 80048; 82550; 82553; 82803; 83735; 84439; 84443; 84484; 85025; 85379; 87486; 87507; 87581; 87633; 87798; 93005; 93041; 93306; 93970; 94760; 96360; 96372; 97116; 97161; 97165; 97530; 99285; A9540; A9567; G0378; J1644

== ENCOUNTER → 2022-05-13 | Outpatient (CLI) | payer MEDICARE, BC ==
[~2022-05-13] MED LIST changes: +AMIO0.1T PO; +ASPI-424 PO; +CHOL4PW PO; +DICY1CAP8 PO; +DULO-34 PO; +ELIQ5TAB PO; +FISH1000 PO; +GABA800T4 PO; +LOPE2TAB12 PO; +MIRT-62 PO; +SYNT100T PO; +VITMTA PO
== END ==
LOC: M PLAIMG 12:37
PROVIDERS: ATTEND Internal Medicine Hematology
DX: M51.37 Other intervertebral disc degeneration, lumbosacral region (principal); M54.50 Low back pain, unspecified

== ENCOUNTER → 2022-08-12 | Outpatient (CLI) | payer MEDICARE, BC | LOC: M PLAIMG 15:03 | PROVIDERS: ATTEND Internal Medicine Hematology | DX: I49.9 Cardiac arrhythmia, unspecified (principal); M51.37 Other intervertebral disc degeneration, lumbosacral region ==

== ENCOUNTER → 2022-08-22 | Outpatient (CLI) | payer MEDICARE, BC ==
[2022-08-22 13:02] LABS: FREE T4 0.67 NG/DL (0.76-1.46); THYROID STIMULATING HORMONE 3.38 uIU/ML (0.358-3.740)
== END ==
LOC: M LAB 11:12
PROVIDERS: ATTEND Psychiatry & Neurology Neurology
DX: E53.8 Deficiency of other specified B group vitamins (principal); R26.9 Unspecified abnormalities of gait and mobility; E03.9 Hypothyroidism, unspecified; R41.3 Other amnesia

== ENCOUNTER → 2022-09-10 | Outpatient (CLI) | payer MEDICARE, BC | LOC: M PLAIMG 11:08 | PROVIDERS: ATTEND Psychiatry & Neurology Neurology | DX: G31.84 Mild cognitive impairment of uncertain or unknown etiology (principal); R26.81 Unsteadiness on feet; G31.83 Neurocognitive disorder with Lewy bodies ==

== ENCOUNTER → 2023-04-24 | Outpatient (CLI) | payer MEDICARE, BC ==
[2023-04-24 16:03] LABS: HEMATOCRIT 39.7 % (42.0-52.0); HEMOGLOBIN 13.1 g/dl (13.5-17.5); MEAN CORPUSCULAR HEMOGLOBIN 35.1 pg (27.0-33.0); MEAN CORPUSCULAR VOLUME 106.4 fl (80.0-96.0); PLATELET COUNT, AUTOMATED 160 10^3/uL (150-450); RED BLOOD COUNT 3.73 10^6/uL (4.30-6.10); WHITE BLOOD COUNT 6.7 10^3/uL (4.0-10.0)
[2023-04-24 16:15] LABS: HEMOGLOBIN A1c 4.6 % (4.0-6.0)
[2023-04-24 16:27] LABS: C REACTIVE PROTEIN QUANTITATIV < 0.40 MG/DL (<1.0)
[2023-04-24 16:28] LABS: MAU/CREAT RATIO 11.1 MCG/MG (0.0-30.0)
[2023-04-24 16:29] LABS: ALBUMIN 3.5 G/DL (3.2-5.2); ALKALINE PHOSPHATASE 87 U/L (46-116); ALT/SGPT 20 U/L (7.0-40); AST/SGOT 26 U/L (<34); BILIRUBIN,TOTAL 0.4 MG/DL (0.3-1.2); BLOOD UREA NITROGEN 23 MG/DL (9-23); CALCIUM LEVEL 9.5 MG/DL (8.3-10.6); CARBON DIOXIDE LEVEL 23 MMOL/L (20-31); CHLORIDE LEVEL 111 MMOL/L (98-107); CHOLESTEROL LEVEL 138 MG/DL (<200); CHOLESTEROL RISK RATIO 4.69 (<5); CREATININE FOR GFR 1.31 MG/DL (0.70-1.30); GLOMERULAR FILTRATION RATE 55.9 (>35); GLUCOSE, FASTING 101 MG/DL (74-106); HDL CHOLESTEROL 29.4 MG/DL (>40); NON-HDL-C 108.6 MG/DL; POTASSIUM SERUM 4.3 MMOL/L (3.5-5.1); SODIUM LEVEL 142 MMOL/L (136-145); TOTAL PROTEIN 6.7 G/DL (5.7-8.2); TRIGLYCERIDES LEVEL 405 MG/DL (<150)
[2023-04-24 16:30] LABS: FREE T4 1.03 NG/DL (0.89-1.76)
[2023-04-24 16:31] LABS: THYROID STIMULATING HORMONE 1.154 uIU/ML (0.55-4.78); TOTAL 25(OH) VITAMIN D 16.3 NG/ML (20.0-100.0); VITAMIN B12 LEVEL 483 PG/ML (211-911)
[2023-04-29 18:08] LABS: FREE KAPPA LIGHT CHAINS SERUM 55.5 mg/L (3.3-19.4); FREE LAMBDA LIGHT CHAINS SERUM 28.2 mg/L (5.7-26.3); KAPPA/LAMBDA RATIO SERUM 1.97 (0.26-1.65)
== END ==
LOC: M PLALAB 14:20
PROVIDERS: ATTEND Internal Medicine Hematology
DX: I49.9 Cardiac arrhythmia, unspecified (principal); I10 Essential (primary) hypertension; Z79.899 Other long term (current) drug therapy

== ENCOUNTER 2023-05-06 17:13 | Emergency (ER) | payer MEDICARE, BC ==
[~2023-05-06] VITALS: Ht 177.8 cm; Wt 92.8 kg
[2023-05-06 17:16] VITALS: BP 170/88; TEMP 96.8; O2SAT 95
== END 2023-05-07 00:12 | disposition left against medical advice (07) ==
LOC: M ED 17:13
DX: R10.9 Unspecified abdominal pain (principal); Z53.21 Procedure and treatment not carried out due to patient leaving prior to being seen by health care provider

== ENCOUNTER → 2023-06-17 | Day surgery (SDC) | payer MEDICARE, BC ==
[~2023-06-17] VITALS: Ht 177.8 cm; Wt 92.7 kg
[~2023-06-17] MED LIST changes: +LIDOCAINE 2% 100MG/5ML SDV (FOR ANES.) As Ordered ONE; +NS 1,000 ML IV ONE; +OMEG10002 PO; +propofoL 200 MG/20 ML VIAL As Ordered ONE
[2023-06-17 07:56] VITALS: TEMP 97
[2023-06-17 08:14] VITALS: BP 137/68; O2SAT 97
== END | disposition home or self-care (01) ==
LOC: M OPP 06:35
PROVIDERS: ATTEND Internal Medicine Gastroenterology
DX: K62.5 Hemorrhage of anus and rectum (principal); Z98.0 Intestinal bypass and anastomosis status; K28.9 Gastrojejunal ulcer, unspecified as acute or chronic, without hemorrhage or perforation; K91.850 Pouchitis; Z79.01 Long term (current) use of anticoagulants; Z79.82 Long term (current) use of aspirin; Z79.899 Other long term (current) drug therapy; Z79.890 Hormone replacement therapy

== ENCOUNTER → 2023-10-08 | Outpatient (CLI) | payer MEDICARE, BC ==
[~2023-10-08] MED LIST changes: -GABA-283 PO; +GABA-284 PO; -LIDOCAINE 2% 100MG/5ML SDV (FOR ANES.) As Ordered ONE; -MIRT-62 PO; +MIRT-88 PO; -NS 1,000 ML IV ONE; -propofoL 200 MG/20 ML VIAL As Ordered ONE
[2023-10-08 18:00] LABS: APPEARANCE, URINE CLOUDY (CLEAR); BACTERIA, URINE AUTO NEGATIVE (NEGATIVE); BILIRUBIN, URINE AUTO NEGATIVE (NEGATIVE); BLOOD, URINE BLOOD 2+ (NEGATIVE); GLUCOSE, URINE (UA) AUTO NEGATIVE (NEGATIVE); KETONE, URINE AUTO NEGATIVE (NEGATIVE); LEUKOCYTE ESTERASE, URINE AUTO NEGATIVE (NEGATIVE); MUCUS, URINE SMALL (NEGATIVE); NITRITE, URINE AUTO NEGATIVE (NEGATIVE); PROTEIN, URINE AUTO 2+ mg/dL (NEGATIVE); RBC, URINE AUTO TNTC /HPF (0-3); SPECIFIC GRAVITY URINE AUTO 1.029 (1.002-1.035); SQUAMOUS EPITHELIAL CELL UR AU 2 /HPF (0-6); UROBILINOGEN, URINE AUTO 0.2 mg/dL (0.0-2.0); WBC, URINE AUTO 5 /HPF (0-3)
[2023-10-08 18:01] LABS: COLOR, URINE AMBER (YELLOW)
[2023-10-08 18:04] LABS: HEMATOCRIT 36.8 % (42.0-52.0); HEMOGLOBIN 11.9 g/dl (13.5-17.5); MEAN CORPUSCULAR HEMOGLOBIN 34.4 pg (27.0-33.0); MEAN CORPUSCULAR HGB CONC 32.3 g/dl (32.0-36.5); MEAN CORPUSCULAR VOLUME 106.4 fl (80.0-96.0); PLATELET COUNT, AUTOMATED 225 10^3/uL (150-450); RED BLOOD COUNT 3.46 10^6/uL (4.30-6.10); WHITE BLOOD COUNT 7.7 10^3/uL (4.0-10.0)
[2023-10-08 18:09] LABS: HEMOGLOBIN A1c 4.5 % (4.0-6.0)
[2023-10-08 18:15] LABS: CREATININE, URINE 112.2 MG/DL
[2023-10-08 18:18] LABS: C REACTIVE PROTEIN QUANTITATIV < 0.40 MG/DL (<1.0)
[2023-10-08 18:24] LABS: ALBUMIN 3.4 G/DL (3.2-5.2); ALKALINE PHOSPHATASE 87 U/L (46-116); ALT/SGPT 16 U/L (7.0-40); AST/SGOT 18 U/L (<34); BILIRUBIN,TOTAL 0.3 MG/DL (0.3-1.2); BLOOD UREA NITROGEN 20 MG/DL (9-23); CALCIUM LEVEL 9.5 MG/DL (8.3-10.6); CARBON DIOXIDE LEVEL 24 MMOL/L (20-31); CHLORIDE LEVEL 110 MMOL/L (98-107); CHOLESTEROL LEVEL 117 MG/DL (<200); CHOLESTEROL RISK RATIO 3.71 (<5); CREATININE FOR GFR 1.47 MG/DL (0.70-1.30); GLOMERULAR FILTRATION RATE 48.8 (>35); GLUCOSE, FASTING 139 MG/DL (74-106); HDL CHOLESTEROL 31.5 MG/DL (>40); LDL CHOLESTEROL 25.7 MG/DL (<100); NON-HDL-C 85.5 MG/DL; POTASSIUM SERUM 3.9 MMOL/L (3.5-5.1); SODIUM LEVEL 143 MMOL/L (136-145); THYROID STIMULATING HORMONE 2.426 uIU/ML (0.55-4.78); TOTAL 25(OH) VITAMIN D 30.7 NG/ML (20.0-100.0); TOTAL PROTEIN 6.6 G/DL (5.7-8.2); TRIGLYCERIDES LEVEL 299 MG/DL (<150); VITAMIN B12 LEVEL 644 PG/ML (211-911)
[2023-10-08 18:31] LABS: MAU/CREAT RATIO 617.6 MCG/MG (0.0-30.0)
[2023-10-10 19:10] LABS: FREE KAPPA LIGHT CHAINS SERUM 77.5 mg/L (3.3-19.4); FREE LAMBDA LIGHT CHAINS SERUM 37.5 mg/L (5.7-26.3); KAPPA/LAMBDA RATIO SERUM 2.07 (0.26-1.65)
== END ==
LOC: M PLALAB 14:58
PROVIDERS: ATTEND Internal Medicine Hematology
DX: I25.10 Atherosclerotic heart disease of native coronary artery without angina pectoris (principal); D47.2 Monoclonal gammopathy; N30.00 Acute cystitis without hematuria; Z79.899 Other long term (current) drug therapy

== ENCOUNTER → 2023-10-21 | Outpatient (REF) | payer MEDICARE, BC ==
[2023-10-21 13:20] LABS: APPEARANCE, URINE TURBID (CLEAR); BACTERIA, URINE AUTO 1+ (NEGATIVE); BILIRUBIN, URINE AUTO NEGATIVE (NEGATIVE); BLOOD, URINE BLOOD 3+ (NEGATIVE); COLOR, URINE AMBER (YELLOW); GLUCOSE, URINE (UA) AUTO NEGATIVE (NEGATIVE); KETONE, URINE AUTO NEGATIVE (NEGATIVE); LEUKOCYTE ESTERASE, URINE AUTO NEGATIVE (NEGATIVE); MUCUS, URINE SMALL (NEGATIVE); NITRITE, URINE AUTO NEGATIVE (NEGATIVE); PROTEIN, URINE AUTO 2+ mg/dL (NEGATIVE); RBC, URINE AUTO TNTC /HPF (0-3); SPECIFIC GRAVITY URINE AUTO 1.028 (1.002-1.035); SQUAMOUS EPITHELIAL CELL UR AU 0 /HPF (0-6); UROBILINOGEN, URINE AUTO 0.2 mg/dL (0.0-2.0); WBC, URINE AUTO 5 /HPF (0-3)
== END ==
LOC: M SMT 13:02
PROVIDERS: ATTEND Urology
DX: R31.29 Other microscopic hematuria (principal)

== ENCOUNTER → 2025-05-30 | Outpatient (CLI) | payer MEDICARE, BC ==
[~2025-05-30] MED LIST changes: -AMIO200T49 PO; +AMIO200T54 PO; +GABA-1635 PO; -GABA800T4 PO; -PRAV40TA2 PO; +PRAV40TA85 PO
[2025-05-30 12:52] LABS: BASO % 0.2 % (0.0-1.0); EOS # 0.1 10^3/uL (0.0-0.5); EOS % 1.2 % (0.0-3.0); HEMATOCRIT 40.4 % (42.0-52.0); HEMOGLOBIN 13.6 g/dl (13.5-17.5); LYMPH # 2.6 10^3/uL (1.5-5.0); LYMPH % 32.5 % (24.0-44.0); MEAN CORPUSCULAR HEMOGLOBIN 36.3 pg (27.0-33.0); MEAN CORPUSCULAR HGB CONC 33.7 g/dl (32.0-36.5); MEAN CORPUSCULAR VOLUME 107.7 fl (80.0-96.0); MONO # 0.9 10^3/uL (0.0-0.8); MONO % 11.4 % (2.0-8.0); NEUTROPHILS # 4.4 10^3/uL (1.5-8.5); NEUTROPHILS % 54.5 % (36.0-66.0); PLATELET COUNT, AUTOMATED 186 10^3/uL (150-450); RED BLOOD COUNT 3.75 10^6/uL (4.30-6.10); WHITE BLOOD COUNT 8.1 10^3/uL (4.0-10.0)
[2025-05-30 13:26] LABS: CREATININE, URINE 224.7 MG/DL; MAU/CREAT RATIO 70.3 MCG/MG (0.0-30.0)
[2025-05-30 13:28] LABS: ALBUMIN 3.6 G/DL (3.2-5.2); ALKALINE PHOSPHATASE 121 U/L (40-129); ALT/SGPT 40 U/L (7.0-40); AST/SGOT 41 U/L (<34); BILIRUBIN,TOTAL 0.6 MG/DL (0.3-1.2); BLOOD UREA NITROGEN 16 MG/DL (9-23); C REACTIVE PROTEIN QUANTITATIV < 0.50 MG/DL (<1.0); CALCIUM LEVEL 9.7 MG/DL (8.3-10.6); CARBON DIOXIDE LEVEL 27 MMOL/L (20-31); CHLORIDE LEVEL 102 MMOL/L (98-107); CHOLESTEROL LEVEL 191 MG/DL (<200); CHOLESTEROL RISK RATIO 5.16 (<5); CREATININE FOR GFR 1.29 MG/DL (0.70-1.30); GLUCOSE, FASTING 90 MG/DL (74-106); LDL CHOLESTEROL 89.6 MG/DL (<100); POTASSIUM SERUM 4.6 MMOL/L (3.5-5.1); SODIUM LEVEL 140 MMOL/L (136-145); TRIGLYCERIDES LEVEL 322 MG/DL (<150)
[2025-05-30 13:29] LABS: FREE T4 1.03 NG/DL (0.89-1.76); THYROID STIMULATING HORMONE 14.769 uIU/ML (0.55-4.78); VITAMIN B12 LEVEL 560 PG/ML (211-911)
[2025-05-30 13:32] LABS: HEMOGLOBIN A1c 5.4 % (4.0-6.0)
[2025-06-01 13:24] LABS: FREE KAPPA LIGHT CHAINS SERUM 55.9 mg/L (3.3-19.4); FREE LAMBDA LIGHT CHAINS SERUM 37.9 mg/L (5.7-26.3); KAPPA/LAMBDA RATIO SERUM 1.47 (0.26-1.65)
[2025-06-02 06:24] LABS: ALBUMIN SO 3.9 g/dL (3.8-4.8); ALPHA 1 GLOBULINS SO 0.3 g/dL (0.2-0.3); ALPHA 2 GLOBULINS SO 0.9 g/dL (0.5-0.9); BETA 2 GLOBULIN SO 0.5 g/dL (0.2-0.5); BETA GLOBULIN SO 0.4 g/dL (0.4-0.6)
== END ==
LOC: M LAB 12:03
PROVIDERS: ATTEND Student in an Organized Health Care Education/Training Program
DX: Z00.00 Encounter for general adult medical examination without abnormal findings (principal); I10 Essential (primary) hypertension; I49.9 Cardiac arrhythmia, unspecified; D47.2 Monoclonal gammopathy; Z79.899 Other long term (current) drug therapy

== ENCOUNTER → 2025-06-17 | Outpatient (CLI) | payer MEDICARE, BC ==
[2025-06-17 12:55] LABS: FREE T4 1.28 NG/DL (0.89-1.76)
[2025-06-17 12:57] LABS: TOTAL 25(OH) VITAMIN D 26.2 NG/ML (20.0-100.0)
[2025-06-17 13:20] LABS: C REACTIVE PROTEIN QUANTITATIV 11.97 MG/DL (<1.0)
== END ==
LOC: M LAB 09:53
PROVIDERS: ATTEND Student in an Organized Health Care Education/Training Program
DX: K52.9 Noninfective gastroenteritis and colitis, unspecified (principal); E03.9 Hypothyroidism, unspecified; D75.89 Other specified diseases of blood and blood-forming organs; Z79.899 Other long term (current) drug therapy

== ENCOUNTER → 2025-06-20 | Outpatient (CLI) | payer MEDICARE, BC ==
[~2025-06-20] MED LIST changes: +GASTROGRAFIN SOLUTION 30 ML As Ordered ONE; +ISOVUE-370 76% 100 ML VIAL As Ordered ONE
== END ==
LOC: M RAD 07:06
PROVIDERS: ATTEND Student in an Organized Health Care Education/Training Program
DX: K52.9 Noninfective gastroenteritis and colitis, unspecified (principal)
CPT/HCPCS: 74177; Q9963; Q9967

== ENCOUNTER → 2025-06-30 | Outpatient (REF) | payer MEDICARE, BC ==
[~2025-06-30] MED LIST changes: -GASTROGRAFIN SOLUTION 30 ML As Ordered ONE; -ISOVUE-370 76% 100 ML VIAL As Ordered ONE
== END ==
LOC: M SFHCPLAZ 15:02
PROVIDERS: ATTEND Student in an Organized Health Care Education/Training Program
DX: K52.9 Noninfective gastroenteritis and colitis, unspecified (principal)

== ENCOUNTER 2025-08-18 08:15 | Day surgery (SDC) | payer MEDICARE, BC ==
[~2025-08-18] VITALS: Ht 177.8 cm; Wt 91.2 kg
[~2025-08-18 08:15] MED LIST changes: +ALLO100T PO; +ATOR1TAB19 PO; +COLE1TAB PO; +CVS10CAP7 PO; +D 1010004 PO; +FISH1CAP32 PO; +LEVO112C2 PO; +LIDOCAINE 2% 100 MG/5 ML SDV (FOR ANES.) As Ordered ONE; +LORA-753 PO; +THERTAB52 PO
[2025-08-18 10:15] VITALS: TEMP 96.8
[2025-08-18 10:41] VITALS: BP 134/60; O2SAT 95
== END 2025-08-18 11:55 | disposition home or self-care (01) ==
LOC: M OPP 08:15
PROVIDERS: ATTEND Internal Medicine Gastroenterology
DX: K31.89 Other diseases of stomach and duodenum (principal); R68.81 Early satiety; I48.91 Unspecified atrial fibrillation; Z95.5 Presence of coronary angioplasty implant and graft; Z95.0 Presence of cardiac pacemaker; G47.30 Sleep apnea, unspecified; Z79.01 Long term (current) use of anticoagulants; Z79.899 Other long term (current) drug therapy
CPT/HCPCS: 43239; 88305; J3010

== ENCOUNTER → 2025-10-13 | Outpatient (CLI) | payer MEDICARE, BC ==
[~2025-10-13] MED LIST changes: -LIDOCAINE 2% 100 MG/5 ML SDV (FOR ANES.) As Ordered ONE
[2025-10-13 15:36] LABS: CALCIUM LEVEL 9.1 MG/DL (8.3-10.6); CARBON DIOXIDE LEVEL 29.0 MMOL/L (20-31); CHLORIDE LEVEL 106.0 MMOL/L (98-107); CREATININE FOR GFR 1.4 MG/DL (0.70-1.30); GLOMERULAR FILTRATION RATE 49.6 (>35); POTASSIUM SERUM 3.9 MMOL/L (3.5-5.1); SODIUM LEVEL 144.0 MMOL/L (136-145)
[2025-10-13 15:38] LABS: FREE T4 1.72 NG/DL (0.89-1.76)
== END ==
LOC: M PLALAB 12:17
PROVIDERS: ATTEND Student in an Organized Health Care Education/Training Program
DX: Z00.00 Encounter for general adult medical examination without abnormal findings (principal); K91.850 Pouchitis; E03.9 Hypothyroidism, unspecified